=== PATIENT | male | born 2000 | race Caucasian/White ===

== ENCOUNTER 2025-07-03 02:57 | Emergency (ER) | payer MEDICAID ==
[~2025-07-03] VITALS: Ht 167.6 cm; Wt 113.2 kg
[2025-07-03 03:01] VITALS: O2SAT 98
[2025-07-03 03:32] LABS: BASOPHILS % 0.6 % (0.0-2.0); EOSINOPHILS % 5.3 % (0.0-5.0); HEMATOCRIT. 42.2 % (42.0-52.0); HEMOGLOBIN. 13.9 g/dL (14.0-18.0); LYMPHOCYTES % 25.3 % (20.0-50.0); MEAN PLATELET VOLUME 8.3 fl (7.4-10.4); MONOCYTES % 6.3 % (2.0-8.0); NEUTROPHILS % 62.5 % (40.0-76.0); PLATELET 250 x1000/uL (130-400); RED BLOOD CELL COUNT 5.22 mill/uL (4.7-6.1); RED CELL DISTRIBUTION WIDTH 14.4 % (11.6-14.6)
[2025-07-03] MEDS: IBUPROFEN 600MG TABLET PO ONE (03:33)
[2025-07-03 03:46] LABS: CREATININE 0.9 mg/dL (0.6-1.3); UREA NITROGEN BLOOD 16 mg/dL (9-23)
[2025-07-03 03:47] LABS: TROPONIN I HIGH SENSITIVITY < 4 ng/L (3.0-53)
[2025-07-03 06:17] LABS: TROPONIN I HIGH SENSITIVITY < 4 ng/L (3.0-53)
[2025-07-03 06:39] VITALS: BP 133/49; PULSE 72; RESP 16; TEMP 36.5; O2SAT 98
== END 2025-07-03 06:42 | disposition home or self-care (01) ==
LOC: ER 02:57
DX: R07.89 Other chest pain (principal)
CPT/HCPCS: 36415; 71045; 80048; 84484; 85025; 93005; 99285